=== PATIENT | male | born 1985 ===

== ENCOUNTER 2018-09-07 03:27 | Emergency (ER) | payer SELFPAY ==
--- NOTE | 2018-09-07 05:30 | C.PDOC ---
History Of Present Illness 32 year old male is brought to the ED by EMS for alcohol intoxication. Patient was picked up wandering in the street by EMS. As per EMS patient had a witnessed fall and head injury by a bystander. However patient denies fall, injury, trauma, LOC, visual changes, nausea, vomit, headache. <Melissa Morillo - Last Filed: 09/07/18 07:02> History Per: Patient, EMS History/Exam Limitations: intoxication Onset/Duration Of Symptoms: Hrs Current Symptoms Are (Timing): Still Present Suicide/Self Injury Attempted (Context): None Modifying Factor(s): Alcohol Associated Symptoms: denies: Depression, Suicidal Thoughts, Suicidal Plan Recent travel outside of the [place]: No Additional History Per: Patient, EMS <Melissa Morillo - Last Filed: 09/07/18 07:02> <Art Gamez V - Last Filed: 09/07/18 12:39> Time Seen by Provider: 09/07/18 03:44 Chief Complaint (Nursing): Substance Abuse Past Medical History Reviewed: Historical Data, Nursing Documentation, Vital Signs Vital Signs: Last Vital Signs Temp 97.3 F L 09/07/18 03:39 Pulse 78 09/07/18 05:15 Resp 16 09/07/18 05:15 BP 99/53 L 09/07/18 05:15 Pulse Ox 96 09/07/18 05:15 - Medical History PMH: Back Problems, Chronic Pain (Back pain) Denies: Chronic Kidney Disease Surgical History: No Surg Hx Family History: States: Unknown Family Hx - Social History Hx Alcohol Use: Yes Hx Substance Use: No - Immunization History Hx Tetanus Toxoid Vaccination: No Hx Influenza Vaccination: No Hx Pneumococcal Vaccination: No <Melissa Morillo - Last Filed: 09/07/18 07:02> Vital Signs: Last Vital Signs Temp 97.3 F L 09/07/18 03:39 Pulse 70 09/07/18 06:42 Resp 16 09/07/18 06:42 BP 93/54 L 09/07/18 06:42 Pulse Ox 96 09/07/18 07:06 <Art Gamez V - Last Filed: 09/07/18 12:39> Review Of Systems Constitutional: Negative for: Fever, Chills Eyes: Negative for: Vision Change Gastrointestinal: Negative for: Nausea, Vomiting Skin: Negative for: Rash Neurological: Negative for: Weakness, Numbness, Headache Psych: Negative for: Depression, Suicidal ideation <Melissa Morillo - Last Filed: 09/07/18 07:02> Physical Exam - Physical Exam Appears: Non-toxic, No Acute Distress, Combative, Agitated Skin: Normal Color, Warm, Dry Head: Normacephalic, No Laceration, Other (left cheek erythema/ecchymosis, no o pen wounds, no bony tenderness, no active bleeding) Eye(s): bilateral: Normal Inspection, PERRL, EOMI Neck: Normal ROM, No Midline Cervical Tenderness, Supple Chest: Symmetrical Cardiovascular: Rhythm Regular Respiratory: Normal Breath Sounds, No Rales, No Rhonchi, No Wheezing Gastrointestinal/Abdominal: Soft, No Tenderness Extremity: Normal ROM, No Tenderness, No Swelling Neurological/Psych: Oriented x3, Normal Speech, Normal Cognition Gait: Steady <Melissa Morillo - Last Filed: 09/07/18 07:02> ED Course And Treatment O2 Sat by Pulse Oximetry: 96 (ON RA) Pulse Ox Interpretation: Normal - CT Scan/US CT head Other Rad Studies (CT/US): Read By Radiologist, Radiology Report Reviewed CT/US Interpretation: Name:BERT BERRIOS Exam Date:Sep 07, 2018 5:37:39 AM EST. Modality Type:CT. Description:CT - BRAIN. Gender:M Laterality:Not applicable. :86 Referring Physician:Melissa Morillo ([facility]). EXAM: CT Head without Intravenous Contrast. CLINICAL HISTORY: ETOH, Head injury as per EMS, Substance abuse. TECHNIQUE: Axial computed tomography images of the head/brain without intravenous contrast. 0.00 mGy-cm. COMPARISON: None provided. FINDINGS: BRAIN. No acute intraparenchymal hemorrhage. No mass lesion. No CT evidence for acute territorial infarct. No midline shift or extra-axial collections. VENTRICLES: No hydrocephalus. ORBITS: The orbits are unremarkable. SINUSES AND MASTOIDS: Chronic bilateral ethmoid, maxillary and right frontal sinusitis. The mastoid air cells are clear. BONES: No fracture. SOFT TISSUES: Unremarkable. IMPRESSION: Sinusitis. No acute intracranial abnormality. . Electronically signed on Sep 07, 2018 5:55:45 AM EST by: Jamir Hernadez M.D., DAI Certified By ABR & CBCCT. Fellowship Trained MRI and CT Specialist. Progress Note: Plan: -Patient is screeming, verbally abusive, refuses CT Head. Plan: - Geodon 20 mg IM. - 1:1 Obs. - CT head. While in the ED patient joe me agressive, combative and verbally abussive towards the staff. Patient was restrained for his safety and the safety of the staff. Retraints were removed, patient sleeping at this moment. At 7 am case was sign out to . <Melissa Morillo - Last Filed: 09/07/18 07:02> Disposition - Disposition Disposition Time: 07:03 <Melissa Morillo - Last Filed: 09/07/18 07:02> Counseled Patient/Family Regarding: Studies Performed, Diagnosis, Need For Followup, Rx Given - Disposition Disposition Time: 12:38 <Art Gamez V - Last Filed: 09/07/18 12:39> - Disposition Referrals: [facility] at [facility] [Outside] Disposition: HOME/ ROUTINE Condition: STABLE Prescriptions: Ibuprofen [Motrin] 600 mg PO TID #20 tab Instructions: Alcohol Use - When Is Drinking a Problem?, Closed Head Injury Forms: [facility] ([place]ian), General Discharge Instructions - Clinical Impression Clinical Impression: Alcohol intoxication, Head injury - PA / PSYCHOTHERAPIST / Resident Statement MD/DO has reviewed & agrees with the documentation as recorded. - Scribe Statement The provider has reviewed the documentation as recorded by the Scribe Marky Zapata All medical record entries made by the Scribe were at my direction and personally dictated by me. I have reviewed the chart and agree that the record accurately reflects my personal performance of the history, physical exam, medical decision making, and the department course for this patient. I have also personally directed, reviewed, and agree with the discharge instructions and disposition. <Melissa Morillo - Last Filed: 09/07/18 07:02> Physician Patient Turnover Patient Signed Over To: Art Gamez V Handoff Comments: Pending sobriety and dispo <Melissa Morillo - Last Filed: 09/07/18 07:02> Addendum Addendum: 09/07/18 07:31 Patient was signed over to me at 7AM by Gabbi Morillo. Patient presented to ED intoxicated with Hx of possible head trauma. Patient was ambulatory, awake, alert, and combative. He received geodon for sedation. CT of Head was done. Patient has no acute abnormalities. Patient's Physical: Patient is asleep. Moving all extremities. Vital signs stable. <Art Gamez V - Last Filed: 09/07/18 12:39>
[2018-09-07] MEDS ORDERED: Sodium Chloride 0.9% 1,000 ML ONE (06:14)
[2018-09-07] MEDS ORDERED: Sodium Chloride 0.9% 1,000 ML IV STA (06:16)
--- NOTE | 2018-09-07 10:23 | CT ---
Date of service: 09/07/2018 PROCEDURE: CT HEAD WITHOUT CONTRAST. HISTORY: ETOH, head injury as per EMS COMPARISON: None available. TECHNIQUE: Axial computed tomography images were obtained through the head/brain without intravenous contrast. Radiation dose: Total exam DLP = 786.9 mGy-cm. This CT exam was performed using one or more of the following dose reduction techniques: Automated exposure control, adjustment of the mA and/or kV according to patient size, and/or use of iterative reconstruction technique. FINDINGS: HEMORRHAGE: No intracranial hemorrhage. BRAIN: No mass effect or edema. No atrophy or chronic microvascular ischemic changes. VENTRICLES: Unremarkable. No hydrocephalus. CALVARIUM: Unremarkable. PARANASAL SINUSES: Mild mucosal thickening seen in the right aspect of the frontal sinus. There is localized rightward deviation of the nasal septum associated with a right-sided septal bone spur. Tiny focus of mucosal thickening left maxillary antrum. MASTOID AIR CELLS: Unremarkable as visualized. No inflammatory changes. OTHER FINDINGS: None. IMPRESSION: No acute intracranial hemorrhage.
[2018-09-07 12:50] VITALS: BP 97/62; PULSE 91; RESP 11; TEMP 98; O2SAT 98
== END 2018-09-07 12:49 | disposition home or self-care (01) ==
LOC: C.ER 03:27
DX: F10.129 Alcohol abuse with intoxication, unspecified (principal); S09.90XA Unspecified injury of head, initial encounter; W19.XXXA Unspecified fall, initial encounter
CPT/HCPCS: 70450; 82948; 96360; 96372; 99285; G0480; J3486; J7030